=== PATIENT | male | born 1950 | race Caucasian/White ===

== ENCOUNTER → 2023-12-22 07:16 | Outpatient (REF) | payer MEDICARE, OTHER, SELFPAY | LOC: RCS 07:16 | PROVIDERS: ATTENDING PHYSICIAN Physician Assistant; FAMILY PHYSICIAN Internal Medicine | DX: R06.00 Dyspnea, unspecified (principal); I10 Essential (primary) hypertension; R07.9 Chest pain, unspecified | CPT/HCPCS: 93017; 93350 ==

== ENCOUNTER → 2024-12-30 17:37 | Outpatient (REF) | payer MEDICARE, OTHER, SELFPAY | LOC: RAD 17:37 | PROVIDERS: ATTENDING PHYSICIAN Internal Medicine; OTHER PHYSICIAN Physician Assistant | DX: M79.89 Other specified soft tissue disorders (principal); I87.2 Venous insufficiency (chronic) (peripheral) | CPT/HCPCS: 93971 ==

== ENCOUNTER → 2025-06-11 06:40 | Outpatient (REF) | payer MEDICARE, OTHER, SELFPAY | LOC: RAD 06:40 | PROVIDERS: ATTENDING PHYSICIAN Internal Medicine | DX: I82.432 Acute embolism and thrombosis of left popliteal vein (principal) | CPT/HCPCS: 93971 ==